=== PATIENT | male | born 1935 | race Caucasian/White ===

== ENCOUNTER 2019-05-01 11:07 | Outpatient (CLI) | payer BC, MEDICARE ==
--- NOTE | 2019-05-01 13:46 | PET ---
Nuclear medicine FDG PET/CT: (Positron emission tomography and computed tomography) DATE: 05/01/2019 HISTORY: 84-year-old male with large B-cell lymphoma of right tonsil. Initial staging. COMPARISON: None available TECHNIQUE: IV injection of F-18 fluorodeoxyglucose (FDG) dose: 10.8 mCi. PET scan and attenuation correction CT performed from skull base to proximal thighs. PET scan and attenuation correction CT thinner slices performed through head and neck. FINDINGS: SUV (standard uptake values) numbers given are maximum SUVs. QCLR used. At the distal tip of the oral tongue, there is a focus of intensely increased FDG uptake with SUV of 7.9. This could be either due to tongue muscular contraction activity, or a primary neoplasm. Recommend direct physical examination of the tip of the tongue. There is a large soft tissue density mass centered in the region of the right palatine tonsil, with l obular margins and protruding into the oral pharyngeal airway reaching midline. SUV 11.1. Nearby, there are multiple malignant right cervical lymph nodes: Right lateral retropharyngeal versus level 2 lymph node SUV 7.1. Large conglomeration of matted right level 2 and level 3 lymph nodes with SUV 11.2. Conglomeration of right level 3 and level 4 lymph nodes with SUV 10.6. 1 x 1.5 cm right level 5A lymph node SUV 4.2. No contralateral left-sided cervical lymphadenopathy. Large number of bilateral renal parenchymal cysts, including large cysts and hemorrhagic cysts. The l argest is a 6.5 x 6 cm exophytic round renal mass protruding inferiorly from the lower pole of the right renal cortex, with density of 18 Hounsfield units, surrounded by edema. The edema surrounding t his exophytic cystic mass has SUV up to 5.9. Otherwise no convincing evidence of metastatic disease within the chest, abdomen, or pelvis. There is diffusely mildly increased skeletal uptake throughout much of the spine and pelvis, which is nonspecific, in the range of 2 - 2.7 SUV. 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 2) extensive right cervical lymphadenopathy including matted conglomeration of large right lymph node s. 3) focus of intensely increased uptake at the tip of the oral tongue. This could be due to tongue mus jillian contraction activity, traumatic right injury, or primary cancer. Recommend direct physical examination. 4) a large number of bilateral renal cysts, suspicious for polycystic kidney disease type II. 5) the largest 6.5 cm cystic mass exophytic from the lower pole the right kidney is involved with joel rounding edema and increased FDG uptake, suggesting that this may represent an infected renal cyst.
== END 2019-05-01 11:08 | disposition home or self-care (01) ==
LOC: PET 11:07
PROVIDERS: ATTEND Internal Medicine Medical Oncology
DX: C83.31 Diffuse large B-cell lymphoma, lymph nodes of head, face, and neck (principal); R59.0 Localized enlarged lymph nodes; N28.1 Cyst of kidney, acquired
CPT/HCPCS: 78815; A9552

== ENCOUNTER 2019-07-11 07:27 | Day surgery (SDC) | payer BC, MEDICARE ==
[2019-07-11] MEDS ORDERED: Bupivacaine HCl 0.5%/Epinephrine 1:200,000/PF 30 ml Vial ONE (08:29)
[2019-07-11] MEDS ORDERED: Lidocaine 2% PF 5 ML VIAL ONE (08:29)
[2019-07-11] MEDS ORDERED: Fentanyl 100 MCG/2 ML VIAL ONE (08:32)
[2019-07-11] MEDS ORDERED: Midazolam HCl 2 mg/2 ml Vial ONE (08:32)
--- NOTE | 2019-07-11 10:23 | RAD ---
XR Chest 1 View Portable HISTORY: Mediport placement, B-cell lymphoma COMPARISON: None FINDINGS: There is a left subclavian Port-A-Cath with tip in the projection of the SVC. The heart siz e is normal. The lungs are well expanded without focal areas of consolidation, pneumothorax or pleural effusions. IMPRESSION: No radiographic evidence of acute cardiopulmonary process.
--- NOTE | 2019-07-11 16:53 | OP ---
DATE OF PROCEDURE: 07/11/2019 PREOPERATIVE DIAGNOSES: B-cell lymphoma, in need of MediPort access for antineoplastic treatment. POSTOPERATIVE DIAGNOSES: B-cell lymphoma, in need of MediPort access for antineoplastic treatment. PROCEDURE PERFORMED: Placement of left subclavian vein MediPort, low-profile PowerPort, fluoroscopy used. ANESTHESIA: IV sedation, local of 0.5% Marcaine with epinephrine 30 mL mixed with 2% Xylocaine 10 mL. DESCRIPTION OF PROCEDURE: The patient was taken to the operating room, where in supine position, neck and chest were prepared with ChloraPrep and draped in routine fashion. Local anesthetic was infiltrated in the skin and subcutaneous tissue about the operative site. Infraclavicular approach made left access in the subclavian vein, threading the J-wire, removing the trocar catheter, enlarging the skin incision, creating a subcutaneous pocket to accommodate the MediPort. Dilator and Peel-Away sheath were placed over the J-wire into the superior vena cava. Dilator and J-wire were removed. Catheter was placed over the Peel-Away sheath. Peel-Away sheath was removed. Fluoroscopically, catheter tip was placed in optimal position in the superior vena cava, and catheter length was adjusted and connected to the MediPort placed in the subcutaneous pocket secured with 2 interrupted sutures of 3-0 Prolene. Subcutaneous tissue was approximated with 3-0 Monocryl, skin with subdermal 4-0 Monocryl, and [place] glue applied. MediPort was accessed with a Alvarez needle and IV tubing to lead access for chemotherapy administration today. A good return of venous blood obtained. It was flushed with heparinized saline solution. Sterile dressings were applied. Fluoroscopic images revealed good line and port placement. Job ID: [id number]
== END 2019-07-11 11:06 | disposition home or self-care (01) ==
LOC: SDC 07:27
PROVIDERS: ATTEND Specialist
PROC: 05H633Z Insertion of Infusion Device into Left Subclavian Vein, Percutaneous Approach (ICD-10-PCS; principal; 2019-07-11)
DX: C85.10 Unspecified B-cell lymphoma, unspecified site (principal)
CPT/HCPCS: 71045; C1788; J0670; J0690; J1642; J2001; J2250; J3010

== ENCOUNTER 2019-09-24 10:33 | Outpatient (CLI) | payer BC, MEDICARE ==
--- NOTE | 2019-09-24 12:56 | NM ---
Exam: Nuclear medicine MUGA scan HISTORY: Unspecified B-cell lymphoma. Patient is undergoing chemotherapy administration. COMPARISON: 06/30/2019 TECHNIQUE: Patient was administered 27.7 mCi of technetium 99m tagged red blood cells intravenously. Gated imaging was performed in the [place] projection FINDINGS: There is decreased contractility of the ventricle. Left ventricular calculated ejection fraction is 5 0.4% IMPRESSION: 1. Decreased contractility of the left ventricle. 2. Decreased ejection fraction. Currently, the calculated left ejection fraction is 50.4%. Previously , 75.6%
[2019-09-24] MEDS ORDERED: Heparin 1,000 UNITS/ML VIAL ONE (13:35)
== END 2019-09-24 10:34 | disposition home or self-care (01) ==
LOC: NM 10:33
PROVIDERS: ATTEND Internal Medicine Medical Oncology
DX: C85.10 Unspecified B-cell lymphoma, unspecified site (principal); C61 Malignant neoplasm of prostate; D51.3 Other dietary vitamin B12 deficiency anemia
CPT/HCPCS: 78472; A9604; J1644

== ENCOUNTER 2019-09-29 13:11 | Outpatient (CLI) | payer BC, MEDICARE ==
--- NOTE | 2019-09-29 10:56 | PET ---
Radionucleotide PET scan with CT attenuation correction HISTORY: Right tonsillar lymphoma with yves metastases. Restaging. COMPARISON: 05/01/2019. FINDINGS: Physiologic uptake within the enteric system and along each urinary tract. Faint vascular u ptake around the shoulders and back. Focally increased uptake at the right tonsil now with maximum SUV 8.9 (previously 12.6). Right level 2 and level 3 cervical lymph nodes are smaller than on the previous study, now with maximum SUV 6.6 (previously 12.5). At the upper anterior midline now, a focus of increased radiotracer uptake shows a maximum SUV of 9.3 (previously 9.1). While less well delineated on the current exam, it was favored to be associated with the tip of the tongue on the previous study. The tongue is likely progressed forward and upward on today's exam, so that it immediately abuts the hard palate. Immediately deep to the left sternocleidomastoid muscle is a somewhat linear focus of increased radio tracer uptake maximum SUV 4.5. There was no abnormality in this location on the previous study. A slightly enlarged, elongated lymph node is favored to account for the activity, although it is diffic ult to characterize anatomically with the noncontrast enhanced exam. The uptake previously seen at the periphery of the exophytic cyst at the inferior pole right kidney i s no longer present. No distant hypermetabolic adenopathy is evident. IMPRESSION: Mixed findings. There has been significant improvement in the hypermetabolic activity associated with the right tonsillar mass and right cervical adenopathy. The Douville score remains 4. There is persistent uptake associated with the tip of the tongue. Concerning for malignancy. A newly hypermetabolic lymph node along the left side of the neck, immediately deep to the lower sternocleidomastoid muscle, is worrisome for new malignant involvement. Please consider direct clinic al evaluation of the tip of the tongue and dedicated CT neck with IV contrast for better anatomic characterization of these lesions.
== END 2019-09-29 13:12 | disposition home or self-care (01) ==
LOC: PET 13:11
PROVIDERS: ATTEND Internal Medicine Medical Oncology
DX: C85.10 Unspecified B-cell lymphoma, unspecified site (principal); J35.8 Other chronic diseases of tonsils and adenoids
CPT/HCPCS: 78815; A9552

== ENCOUNTER 2019-10-17 07:49 | Day surgery (SDC) | payer BC, MEDICARE ==
[2019-10-17] MEDS ORDERED: Sodium Chloride 0.9% 20 ML ONE (09:10)
[2019-10-17] MEDS ORDERED: Dexamethasone 10 MG/ML VIAL ONE (09:10)
[2019-10-17] MEDS ORDERED: Acetaminophen 500 MG TAB PO SCH (09:30)
[2019-10-17] MEDS ORDERED: Dexamethasone 4 mg/ml Vial SLOW IVP SCH (09:30)
[2019-10-17 15:09] VITALS: BP 139/65; TEMP 97.6
== END 2019-10-17 15:23 | disposition home or self-care (01) ==
LOC: ONC/OP 07:49
PROVIDERS: ATTEND Internal Medicine Medical Oncology
PROC: 30233R1 Transfusion of Nonautologous Platelets into Peripheral Vein, Percutaneous Approach (ICD-10-PCS; principal; 2019-10-17)
PROC: 30233N1 Transfusion of Nonautologous Red Blood Cells into Peripheral Vein, Percutaneous Approach (ICD-10-PCS; principal; 2019-10-17)
DX: D64.9 Anemia, unspecified (principal); D69.6 Thrombocytopenia, unspecified
CPT/HCPCS: 36430; 86850; 86900; 86901; 96374; J1100; J1642; P9016

== ENCOUNTER 2019-10-19 21:14 | Inpatient (IN) | payer BC, MEDICARE ==
[2019-10-19] MEDS ORDERED: Lidocaine 2% PF 5 ML VIAL ONE (21:55)
--- NOTE | 2019-10-19 22:03 | RAD ---
Chest AP view INDICATION: Sepsis COMPARISON: Chest radiograph dated July 11, 2019 FINDINGS: Lungs:There is persistent elevation left hemidiaphragm. There is a new small left pleural effusion. T here is increasing airspace opacity in the left lower lobe. Visualized aspects of the right lung are clear. Nipple shadow overlies the right lower hemithorax. Cardiac silhouette:The cardiomediastinal silhouette appears within normal limits. Pulmonary vasculature:Normal Pleural spaces:No pleural effusion or pneumothorax is demonstrated. Upper abdomen:No abnormality seen. Osseous structures: No acute osseous abnormality. Bilateral suture anchors are seen within the alejandra l heads consistent with bilateral rotator cuff repairs. Additional findings:Left chest wall port is unchanged. IMPRESSION: New airspace opacity in the left lower lobe with small left pleural effusion. Recommend c orrelation for left lower lobe pneumonia. Radiographic follow-up to resolution is recommended.
[2019-10-19] MEDS ORDERED: Cefepime 2 GM VIAL ONE (22:08)
[2019-10-19 22:25] LABS: Hemoglobin 10.6 g/dL (14.0-18.0); Mean Corpuscular HGB CONC 34.4 g/dL (32.0-36.0); Mean Corpuscular Hemoglobin 32.4 pg (27.0-31.0); Mean Corpuscular Volume 94.4 fL (78.0-98.0); RBC Distribution Width 14.1 % (11.5-14.5); Red Blood Cell (RBC) Count 3.28 mill/uL (4.70-6.10); White Blood Cell (WBC) Count 4.8 thou/uL (4.8-10.8)
[2019-10-19 22:27] LABS: Mean Platelet Volume 9.5 fL (7.4-10.4); Platelet Count 69 thou/uL (130-400)
[2019-10-19 22:28] LABS: Band 3 % (5-11); Hypochromia SLIGHT = 6-15 cells (100X) (0-5/hpf); Lymphocytes 4 % (21-51); MDiff Complete? YES; Monocytes 7 % (0-10); Neutrophil 86 % (42-75); Platelet Morphology Comment Appears Decreased
[2019-10-19 22:34] LABS: ALT (SGPT) 18 U/L (8-55); AST (SGOT) 15 U/L (5-34); Albumin 3.2 g/dL (3.4-4.8); Alkaline Phosphatase 74 U/L (40-110); Anion Gap 13 mmol/L (10-20); BUN (Urea Nitrogen) 27 mg/dL (8.4-25.7); Bilirubin, Total 0.5 mg/dL (0.2-1.2); Calc. Creatinine Clearance 0 mL/min (70-130); Calcium 8.8 mg/dL (7.8-10.44); Carbon Dioxide 24 mmol/L (23-31); Chloride 106 mmol/L (98-107); Estimated GFR-MDRD 57; Globulin 2.1 g/dL (2.4-3.5); Glucose 103 mg/dL (83-110); Magnesium 1.2 mg/dL (1.6-2.6); Potassium 3.6 mmol/L (3.5-5.1); Protein, Total 5.3 g/dL (5.8-8.1); Sodium 139 mmol/L (136-145)
[2019-10-19 22:54] LABS: CKMB 1.4 ng/mL (0-6.6)
[2019-10-19] MEDS ORDERED: HYDROcodone/Acetaminophen 5/325 mg Tablet PO PRN (23:18)
[2019-10-19] MEDS ORDERED: Zolpidem Tartrate 5 MG TAB PO PRN (23:18)
[2019-10-19] MEDS ORDERED: Bisacodyl 5 MG TAB PO PRN (23:18)
[2019-10-19] MEDS ORDERED: Guaifenesin DM 100-10/5 ML UDCUP PO PRN (23:18)
[2019-10-19] MEDS ORDERED: Ondansetron PF 4 MG/2 ML Vial IVP PRN (23:18)
[2019-10-19] MEDS ORDERED: Magnesium 2 GM/50 ML BAG (IN WATER) ONE (23:58)
[2019-10-20 00:57] LABS: Troponin I 0.084 ng/mL (< 0.028)
[2019-10-20] MEDS ORDERED: cefTRIAXone\\ROCEPHIN 2 GM VIAL ONE (03:50)
[2019-10-20 04:00] LABS: Anion Gap 12 mmol/L (10-20); BUN (Urea Nitrogen) 22 mg/dL (8.4-25.7); Calc. Creatinine Clearance 0 mL/min (70-130); Calcium 8.1 mg/dL (7.8-10.44); Carbon Dioxide 22 mmol/L (23-31); Chloride 109 mmol/L (98-107); Estimated GFR-MDRD 67; Glucose 119 mg/dL (83-110); Magnesium 1.5 mg/dL (1.6-2.6); Potassium 3.7 mmol/L (3.5-5.1); Sodium 139 mmol/L (136-145)
[2019-10-20 04:10] LABS: Troponin I 0.073 ng/mL (< 0.028)
[2019-10-20] MEDS: cefTRIAXone\\ROCEPHIN 2 GM in Sodium Chloride 0.9% 100 ML IVPB SCH (04:10)
[2019-10-20 04:46] LABS: Band 6 % (5-11); Hemoglobin 10.2 g/dL (14.0-18.0); Hypochromia SLIGHT = 6-15 cells (100X) (0-5/hpf); Lymphocytes 3 % (21-51); MDiff Complete? YES; Mean Corpuscular HGB CONC 33.8 g/dL (32.0-36.0); Mean Corpuscular Hemoglobin 32.5 pg (27.0-31.0); Mean Corpuscular Volume 96.2 fL (78.0-98.0); Mean Platelet Volume 9.4 fL (7.4-10.4); Monocytes 3 % (0-10); Neutrophil 88 % (42-75); Platelet Count 72 thou/uL (130-400); Platelet Morphology Comment Appears Decreased; RBC Distribution Width 14.2 % (11.5-14.5); Red Blood Cell (RBC) Count 3.14 mill/uL (4.70-6.10); White Blood Cell (WBC) Count 4.3 thou/uL (4.8-10.8)
--- NOTE | 2019-10-20 07:53 | HP ---
PRESENTING COMPLAINT: Increasing weakness. HISTORY OF PRESENT ILLNESS: An 84-year-old male with history of hypertension; B-cell lymphoma, on chemo with Adriamycin and other medication, family unsure of exact regimen, last chemo dose was one week ago, presented because of increasing weakness. He denies any shortness of breath, fever, or chills. He denies any nausea, vomiting, or recent diarrhea or abdominal pain. On arrival in the ED, he was noted with left lower lobe infiltrate as well as hypomagnesemia. Patient denies he has ever been on magnesium in the past. He is adherence with his medication. PAST MEDICAL HISTORY: Significant for hypertension; B-cell lymphoma, on chemotherapy; recent neutropenia with anemia, status post PRBC five days ago. ALLERGIES: NO KNOWN DRUG ALLERGIES. HOME MEDICATIONS: Reviewed. See med list. FAMILY HISTORY: Not significant for this 84-year-old male. REVIEW OF SYSTEMS: All systems reviewed times 14, negative, except for weakness as well as myalgia and generalized body aches. PHYSICAL EXAMINATION: VITAL SIGNS: Current vitals, blood pressure of 148/59, pulse of ,of 93 on room air, and temperature afebrile. GENERAL: Elderly male, lying in bed, not in any acute respiratory distress. HEENT: Head is atraumatic, normocephalic. Pupils equal and reactive to light. NECK: No JVD. No carotid bruit. RESPIRATORY: Good air entry, except mild crepitation in left base. No wheeze. CARDIOVASCULAR: S1, S2. Rate and rhythm regular. GI: Abdomen is full, soft, and nontender. EXTREMITIES: No pedal edema. No calf tenderness. NEUROLOGIC: Patient is alert, conversant. at bedside supplying history. LABORATORY DATA: WBC 4.8 with 86% neutrophils, 3% bands, hemoglobin 10.6, and platelets 69. Sodium 139, BUN 27, creatinine 1.2. Magnesium 1.2. Troponin 0.087. Albumin 3.2. AST and alkaline phosphatase normal. Chest x-ray shows left base infiltrate with small associated pleural effusion. IMPRESSION: 1. Left base pneumonia, likely community acquired. 2. Thrombocytopenia due to recent pancytopenia. 3. Patient is on chemo. 4. Hypertension. PLAN: We will admit the patient to observation. We will manage the patient for the followin. Left base pneumonia, likely etiology of weakness. We will obtain PT and OT. Start empiric antibiotics with Levaquin. We will obtain sputum for culture and sensitivity. We will obtain blood culture x2. DuoNebs as tolerated. We will continue to monitor. We will also do flu swab. 2. Hypertension. Resume home regimen. 3. Hypomagnesemia. We will replete. We will also start magnesium oxide. Risk of diarrhea discussed with patient. Follow repeat magnesium in a.m. 4. DVT prophylaxis. Subcutaneous Lovenox. 5. Advance directives discussed with patient and . They would prefer patient to be full code. Total time spent in review of record, discussion with patient, and evaluation greater than 55 minutes. Job ID: [id number]
[2019-10-20] MEDS ORDERED: Famotidine 20 MG TAB ONE (10:37)
[2019-10-20] MEDS ORDERED: Enoxaparin Sodium 40 MG/0.4 ML SYRINGE ONE (10:37)
[2019-10-20] MEDS ORDERED: Aspirin Chewable 81 MG TAB ONE (10:37)
[2019-10-20] MEDS: Allopurinol 300 MG TAB PO SCH (10:48)
[2019-10-20] MEDS: Aspirin 81 mg Enteric Coated Tablet PO SCH (10:49)
[2019-10-20] MEDS: Carvedilol 6.25 MG TAB PO SCH ×2 (10:50→20:07)
[2019-10-20] MEDS: Famotidine 20 MG TAB PO SCH ×2 (10:51→20:07)
[2019-10-20] MEDS: Finasteride 5 MG TAB PO SCH (10:52)
[2019-10-20] MEDS: Magnesium Oxide 400 MG TAB PO SCH ×2 (10:53→20:07)
[2019-10-20] MEDS: Enoxaparin Sodium 40 MG/0.4 ML SYRINGE SC SCH ×2 (10:53→11:35)
[2019-10-20] MEDS: Levothyroxine Sodium 75 MCG TAB PO SCH (11:36)
[2019-10-20] MEDS ORDERED: Acetaminophen 325 MG TAB ONE (15:12)
[2019-10-20] MEDS: Acetaminophen 325 MG TAB PO PRN (15:13)
[2019-10-20] MEDS: Sodium Chloride 0.9% 1,000 ML IV SCH ×3 (17:03→21:49)
--- NOTE | 2019-10-20 17:11 | PDOC.HOSPP ---
- Subjective Encounter Date: 10/20/19 Encounter Time: 17:08 Subjective: Mr. Sims was seen today in follow-up of pneumonia. He was feeling very weak, and had fever. He denies any chest pain or shortness of breath. - Objective Vital Signs & Weight: Vital Signs (12 hours) Temp Pulse Resp BP Pulse Ox 10/20/19 11:38 98.5 F 89 20 144/75 H 96 Result Diagrams: 10/20/19 03:35 10/20/19 03:35 Hospitalist ROS - Medication Medications: Active Medications Generic Name Dose Route Start Last Admin Trade Name Freq PRN Reason Stop Dose Admin Acetaminophen 650 mg 10/19/19 23:18 10/20/19 15:13 Tylenol PO 650 mg Q4H PRN Administration Headache/Fever/Mild Pain (1-3) Allopurinol 300 mg 10/20/19 09:00 10/20/19 10:48 Zyloprim PO 300 mg DAILY CAROLINE Administration Aspirin 81 mg 10/20/19 09:00 10/20/19 10:49 Ecotrin PO 81 mg DAILY CAROLINE Administration Carvedilol 6.25 mg 10/20/19 09:00 10/20/19 10:50 Coreg PO 6.25 mg BID CAROLINE Administration Diltiazem HCl 240 mg 10/20/19 09:00 10/20/19 10:51 Cardizem Cd PO 240 mg DAILY CAROLINE Administration Enoxaparin Sodium 40 mg 10/20/19 09:00 10/20/19 11:35 Lovenox SC Not Given 0900 CAROLINE Famotidine 20 mg 10/20/19 09:00 10/20/19 10:51 Pepcid PO 20 mg BID CAROLINE Administration Finasteride 5 mg 10/20/19 09:00 10/20/19 10:52 Proscar PO 5 mg DAILY CAROLINE Administration Sodium Chloride 1,000 mls @ 50 mls/hr 10/19/19 23:30 10/20/19 17:03 Normal Saline 0.9% IV Not Given .Q20H CAROLINE Ceftriaxone Sodium 2 gm/ 100 mls @ 200 mls/hr 10/20/19 01:00 10/20/19 04:10 Sodium Chloride IVPB 100 mls Q24HR CAROLINE Administration Levofloxacin 750 mg/ Device 150 mls @ 100 mls/hr 10/19/19 23:59 10/20/19 17: 03 IVPB Not Given Q24HR CAROLINE Levothyroxine Sodium 75 mcg 10/20/19 09:00 10/20/19 11:36 Synthroid PO 75 mcg DAILY CAROLINE Administration Magnesium Oxide 400 mg 10/20/19 09:00 10/20/19 10:53 Magnesium Oxide PO 400 mg BID CAROLINE Administration Pantoprazole Sodium 40 mg 10/20/19 09:00 10/20/19 10:51 Protonix PO 40 mg DAILY CAROLINE Administration - Exam Eye: PERRL Heart: RRR, no murmur, no gallops, no rubs, normal peripheral pulses Respiratory: CTAB, no wheezes, no rales, no ronchi, normal chest expansion, no tachypnea, normal percussion Gastrointestinal: soft, non-tender, non-distended, normal bowel sounds, no palpable masses, no hepatomegaly Extremities: no cyanosis, no clubbing, no edema Hosp A/P (1) Pneumonia Code(s): J18.9 - PNEUMONIA, UNSPECIFIED ORGANISM Status: Acute (2) B-cell lymphoma Code(s): C85.10 - UNSPECIFIED B-CELL LYMPHOMA, UNSPECIFIED SITE Status: Acute (3) Hypertension Code(s): I10 - ESSENTIAL (PRIMARY) HYPERTENSION Status: Chronic (4) Abnormal EKG Code(s): R94.31 - ABNORMAL ELECTROCARDIOGRAM [ECG] [EKG] Status: Acute - Plan * Pneumonia- community acquired- will continue Rocephin and Levaquin * B- Cell Lymphoma- he is currently undergoing chemotherapy- his WBC count is low but his ANC is well above 1K, so can discontinue Neutropenic precautions * HTN- Blood pressure is stable * Abnormal EKG- will request previous EKG and compare, then make a decision regarding further evaluation
[2019-10-20 17:17] VITALS: BMI 25.4
[2019-10-21] MEDS: cefTRIAXone\\ROCEPHIN 2 GM in Sodium Chloride 0.9% 100 ML IVPB SCH (00:45)
[2019-10-21] MEDS: Acetaminophen 325 MG TAB PO PRN (05:46)
[2019-10-21] MEDS: Aspirin 81 mg Enteric Coated Tablet PO SCH (08:14)
[2019-10-21] MEDS: Allopurinol 300 MG TAB PO SCH (08:15)
[2019-10-21] MEDS: Levothyroxine Sodium 75 MCG TAB PO SCH (08:15)
[2019-10-21] MEDS: Carvedilol 6.25 MG TAB PO SCH ×2 (08:15→20:57)
[2019-10-21] MEDS: Magnesium Oxide 400 MG TAB PO SCH ×2 (08:15→20:57)
[2019-10-21] MEDS: Finasteride 5 MG TAB PO SCH (08:15)
[2019-10-21] MEDS: Famotidine 20 MG TAB PO SCH ×2 (08:16→20:57)
[2019-10-21] MEDS: Enoxaparin Sodium 40 MG/0.4 ML SYRINGE SC SCH (08:16)
[2019-10-21 10:52] LABS: Hemoglobin 9.9 g/dL (14.0-18.0); Mean Corpuscular HGB CONC 34.4 g/dL (32.0-36.0); Mean Corpuscular Hemoglobin 32.5 pg (27.0-31.0); Mean Corpuscular Volume 94.3 fL (78.0-98.0); Mean Platelet Volume 8.7 fL (7.4-10.4); Platelet Count 96 thou/uL (130-400); RBC Distribution Width 14.2 % (11.5-14.5); Red Blood Cell (RBC) Count 3.04 mill/uL (4.70-6.10); White Blood Cell (WBC) Count 4.5 thou/uL (4.8-10.8)
[2019-10-21 11:13] LABS: Anion Gap 11 mmol/L (10-20); BUN (Urea Nitrogen) 14 mg/dL (8.4-25.7); Calc. Creatinine Clearance 54 mL/min (70-130); Calcium 7.9 mg/dL (7.8-10.44); Carbon Dioxide 25 mmol/L (23-31); Chloride 107 mmol/L (98-107); Estimated GFR-MDRD 57; Glucose 192 mg/dL (83-110); Sodium 140 mmol/L (136-145)
[2019-10-21 11:16] LABS: Troponin I 0.081 ng/mL (< 0.028)
[2019-10-21] MEDS ORDERED: Potassium Chloride 20 MEQ TAB PO SCH (11:30)
--- NOTE | 2019-10-21 11:41 | PDOC.HOSPP ---
- Subjective Encounter Date: 10/21/19 Encounter Time: 11:36 Subjective: Mr. Sims was seen today in follow-up of generalized weakness. He says he feels a little better today. He walked with PT. - Objective Vital Signs & Weight: Vital Signs (12 hours) Temp Pulse Resp BP Pulse Ox 10/21/19 07:42 98.0 F 90 15 145/69 H 95 10/21/19 03:27 98.7 F 95 20 140/63 96 Weight Weight 182 lb 1 oz Result Diagrams: 10/21/19 10:34 10/21/19 10:34 Hospitalist ROS - Medication Medications: Active Medications Generic Name Dose Route Start Last Admin Trade Name Freq PRN Reason Stop Dose Admin Acetaminophen 650 mg 10/19/19 23:18 10/21/19 05:46 Tylenol PO 650 mg Q4H PRN Administration Headache/Fever/Mild Pain (1-3) Allopurinol 300 mg 10/20/19 09:00 10/21/19 08:15 Zyloprim PO 300 mg DAILY CAROLINE Administration Aspirin 81 mg 10/20/19 09:00 10/21/19 08:14 Ecotrin PO 81 mg DAILY CAROLINE Administration Carvedilol 6.25 mg 10/20/19 09:00 10/21/19 08:15 Coreg PO 6.25 mg BID CAROLINE Administration Diltiazem HCl 240 mg 10/20/19 09:00 10/21/19 08:14 Cardizem Cd PO 240 mg DAILY CAROLINE Administration Enoxaparin Sodium 40 mg 10/20/19 09:00 10/21/19 08:16 Lovenox SC Not Given 899 CAROLINE Famotidine 20 mg 10/20/19 09:00 10/21/19 08:16 Pepcid PO 20 mg BID CAROLINE Administration Finasteride 5 mg 10/20/19 09:00 10/21/19 08:15 Proscar PO 5 mg DAILY CAROLINE Administration Sodium Chloride 1,000 mls @ 50 mls/hr 10/19/19 23:30 10/20/19 21:49 Normal Saline 0.9% IV 1,000 mls .Q20H CAROLINE Administration Ceftriaxone Sodium 2 gm/ 100 mls @ 200 mls/hr 10/20/19 01:00 10/21/19 00:45 Sodium Chloride IVPB 100 mls Q24HR CAROLINE Administration Levofloxacin 750 mg/ Device 150 mls @ 100 mls/hr 10/19/19 23:59 10/21/19 00: 45 IVPB 150 mls Q24HR CAROLINE Administration Levothyroxine Sodium 75 mcg 10/20/19 09:00 10/21/19 08:15 Synthroid PO 75 mcg DAILY CAROLINE Administration Magnesium Oxide 400 mg 10/20/19 09:00 10/21/19 08:15 Magnesium Oxide PO 400 mg BID CAROLINE Administration Pantoprazole Sodium 40 mg 10/20/19 09:00 10/21/19 08:15 Protonix PO 40 mg DAILY CAROLINE Administration - Exam Eye: PERRL Heart: RRR, no murmur, no gallops, no rubs, normal peripheral pulses Respiratory: CTAB, no wheezes, no rales, no ronchi, normal chest expansion Gastrointestinal: soft, non-tender, non-distended, normal bowel sounds, no palpable masses, no hepatomegaly Extremities: 1+ LE edema Hosp A/P (1) Pneumonia Code(s): J18.9 - PNEUMONIA, UNSPECIFIED ORGANISM Status: Acute (2) B-cell lymphoma Code(s): C85.10 - UNSPECIFIED B-CELL LYMPHOMA, UNSPECIFIED SITE Status: Acute (3) Hypertension Code(s): I10 - ESSENTIAL (PRIMARY) HYPERTENSION Status: Chronic (4) Abnormal EKG Code(s): R94.31 - ABNORMAL ELECTROCARDIOGRAM [ECG] [EKG] Status: Acute - Plan * Pneumonia- community acquired- will continue Rocephin and Levaquin * Awaiting the final culture results * B- Cell Lymphoma- he is currently undergoing chemotherapy- * HTN- Blood pressure is stable * Abnormal EKG- awaiting a previous EKG for comparison- he does not have any symptoms of CAD
[2019-10-21 12:02] LABS: Band 15 % (5-11); Lymphocytes 7 % (21-51); MDiff Complete? YES; Metamyelocyte 3 % (0-0); Monocytes 6 % (0-10); Neutrophil 68 % (42-75); Platelet Morphology Comment Appears Decreased; Polychromasia SLIGHT = 2-3 cells (100X) (0-2/hpf); Reactive Lymphocytes 1 % (0-10); Schistocytes SLIGHT = 2-5 cells (100X) (0-1/hpf)
--- NOTE | 2019-10-21 12:35 | PQF ---
DAYA PACHECO TONI MD [id number] [facility]-294 [id number] CLINICAL DOCUMENTATION IMPROVEMENT CLARIFICATION FORM: ICD-10 Updated PLEASE DO AN ADDENDUM TO THE PROGRESS NOTE WITH ANY DOCUMENTATION UPDATES OR ADDITIONS AND CARRY THROUGH TO DC SUMMARY. THANK YOU. DATE: 10/21/19 ATTN: Dr. Segal Please exercise your independent, professional judgment in responding to the clarification form. Clinical indicators are provided on the bottom of this form for your review Please check appropriate box(s): Pancytopenia due to: [ ] Pancytopenia [X ] Pancytopenia due to Chemotherapy/antineoplastic drugs [ ] Other diagnosis [ ] Unable to determine In addition, please specify: Present on Admission (POA): [ X ] Yes [ ] No [ ] Unable to determine For continuity of documentation, please document condition throughout progress notes and discharge summary. Thank You. CLINICAL INDICATORS - SIGNS / SYMPTOMS / LABS/ RESULTS AND LOCATION IN MEDICAL RECORD 10/20 WBC 4.3, RBC 3.14,HGB 10.2, PLT 72 per lab "Generalized weakness; thrombocytopenia due to recent pancytopenia" per H&P ([place]) RISK FACTORS / RESULTS AND LOCATION IN MR Cancer-->10/20 Philipp: "B Cell Lymphoma- he is currently undergoing chemotherapy" TREATMENT / RESULTS AND LOCATION IN MR Daily CBC 10/19 to date per orders NS at 50 10/19 to date per orders (This form is maintained as a part of the permanent medical record) 2014 [employer]. All Rights Reserved Kim Anne RN, BSN, CCDS [email or web address]
[2019-10-21] MEDS ORDERED: Ramipril 5 MG CAP PO SCH (20:00)
[2019-10-22] MEDS: cefTRIAXone\\ROCEPHIN 2 GM in Sodium Chloride 0.9% 100 ML IVPB SCH (01:43)
[2019-10-22] MEDS: Acetaminophen 325 MG TAB PO PRN (04:26)
[2019-10-22] MEDS ORDERED: Ramipril 5 MG CAP PO SCH (09:00)
[2019-10-22 09:13] LABS: Hemoglobin 9.7 g/dL (14.0-18.0); Mean Corpuscular HGB CONC 34.3 g/dL (32.0-36.0); Mean Corpuscular Hemoglobin 32.4 pg (27.0-31.0); Mean Corpuscular Volume 94.6 fL (78.0-98.0); Mean Platelet Volume 8.9 fL (7.4-10.4); Platelet Count 115 thou/uL (130-400); RBC Distribution Width 14.4 % (11.5-14.5); Red Blood Cell (RBC) Count 2.99 mill/uL (4.70-6.10); White Blood Cell (WBC) Count 4.6 thou/uL (4.8-10.8)
[2019-10-22 09:35] LABS: Anion Gap 10 mmol/L (10-20); BUN (Urea Nitrogen) 15 mg/dL (8.4-25.7); Calc. Creatinine Clearance 55 mL/min (70-130); Calcium 8.1 mg/dL (7.8-10.44); Carbon Dioxide 27 mmol/L (23-31); Chloride 105 mmol/L (98-107); Estimated GFR-MDRD 59; Glucose 115 mg/dL (83-110); Potassium 3.7 mmol/L (3.5-5.1); Sodium 138 mmol/L (136-145)
[2019-10-22] MEDS: Famotidine 20 MG TAB PO SCH (09:54)
[2019-10-22] MEDS: Aspirin 81 mg Enteric Coated Tablet PO SCH (09:54)
[2019-10-22] MEDS: Carvedilol 6.25 MG TAB PO SCH (09:54)
[2019-10-22] MEDS: Allopurinol 300 MG TAB PO SCH (09:54)
[2019-10-22] MEDS: Magnesium Oxide 400 MG TAB PO SCH (09:55)
[2019-10-22] MEDS: Finasteride 5 MG TAB PO SCH (09:55)
[2019-10-22] MEDS: Levothyroxine Sodium 75 MCG TAB PO SCH (09:55)
[2019-10-22 10:03] LABS: Band 27 % (5-11); Lymphocytes 13 % (21-51); MDiff Complete? YES; Monocytes 7 % (0-10); Myelocyte 1 % (0-0); Neutrophil 51 % (42-75); Platelet Morphology Comment Appears Decreased; Polychromasia SLIGHT = 2-3 cells (100X) (0-2/hpf); Reactive Lymphocytes 1 % (0-10)
[2019-10-22] MEDS: Enoxaparin Sodium 40 MG/0.4 ML SYRINGE SC SCH (10:50)
[2019-10-22] MEDS ORDERED: Enoxaparin Sodium 30 MG/0.3 ML SYRINGE SC SCH (11:15)
[2019-10-22] MEDS: Sodium Chloride 0.9% 1,000 ML IV SCH (11:32)
--- NOTE | 2019-10-22 11:37 | PDOC.HOSPP ---
- Subjective Encounter Date: 10/22/19 Encounter Time: 11:34 Subjective: Mr. Sims was seen today in follow-up of generalized weakness. He does not have any complaints. - Objective Vital Signs & Weight: Vital Signs (12 hours) Temp Pulse Pulse Resp BP BP Pulse Ox 10/22/19 11:25 98 F 99 18 136/73 99 10/22/19 10:47 106 H 156/70 H 10/22/19 09:54 96 10/22/19 07:48 97.9 F 96 18 139/72 97 10/22/19 03:35 98.5 F 100 20 139/66 95 Weight Admit Weight 182 lb 1 oz Weight 179 lb 1.6 oz I&O: 10/21/19 10/22/19 10/23/19 06:59 06:59 06:59 Intake Total 2851 Output Total 1550 Balance 1301 Result Diagrams: 10/22/19 08:40 10/22/19 08:40 Hospitalist ROS - Medication Medications: Active Medications Generic Name Dose Route Start Last Admin Trade Name Freq PRN Reason Stop Dose Admin Acetaminophen 650 mg 10/19/19 23:18 10/22/19 04:26 Tylenol PO 650 mg Q4H PRN Administration Headache/Fever/Mild Pain (1-3) Allopurinol 300 mg 10/20/19 09:00 10/22/19 09:54 Zyloprim PO 300 mg DAILY CAROLINE Administration Aspirin 81 mg 10/20/19 09:00 10/22/19 09:54 Ecotrin PO 81 mg DAILY CAROLINE Administration Carvedilol 6.25 mg 10/20/19 09:00 10/22/19 09:54 Coreg PO 6.25 mg BID CAROLINE Administration Diltiazem HCl 240 mg 10/20/19 09:00 10/22/19 09:54 Cardizem Cd PO 240 mg DAILY CAROLINE Administration Famotidine 20 mg 10/20/19 09:00 10/22/19 09:54 Pepcid PO 20 mg BID CAROLINE Administration Finasteride 5 mg 10/20/19 09:00 10/22/19 09:55 Proscar PO 5 mg DAILY CAROLINE Administration Sodium Chloride 1,000 mls @ 50 mls/hr 10/19/19 23:30 10/22/19 11:32 Normal Saline 0.9% IV Not Given .Q20H CAROLINE Ceftriaxone Sodium 2 gm/ 100 mls @ 200 mls/hr 10/20/19 01:00 10/22/19 01:43 Sodium Chloride IVPB 100 mls Q24HR CAROLINE Administration Levofloxacin 750 mg/ Device 150 mls @ 100 mls/hr 10/19/19 23:59 10/22/19 00: 14 IVPB 150 mls Q24HR CAROLINE Administration Levothyroxine Sodium 75 mcg 10/20/19 09:00 10/22/19 09:55 Synthroid PO 75 mcg DAILY CAROLINE Administration Magnesium Oxide 400 mg 10/20/19 09:00 10/22/19 09:55 Magnesium Oxide PO 400 mg BID CAROLINE Administration Pantoprazole Sodium 40 mg 10/20/19 09:00 10/22/19 09:54 Protonix PO 40 mg DAILY CAROLINE Administration Ramipril 10 mg 10/22/19 09:00 10/22/19 09:55 Altace PO 10 mg DAILY CAROLINE Administration Zolpidem Tartrate 5 mg 10/19/19 23:18 10/21/19 20:57 Ambien PO 5 mg HSPRN PRN Administration Insomnia - Exam Eye: PERRL, anicteric sclera Heart: RRR, no murmur, no gallops, no rubs, normal peripheral pulses Respiratory: CTAB, no wheezes, no rales, no ronchi, normal chest expansion, no tachypnea, normal percussion Gastrointestinal: soft, non-tender, non-distended, normal bowel sounds, no palpable masses, no hepatomegaly Extremities: no cyanosis Hosp A/P (1) Pneumonia Code(s): J18.9 - PNEUMONIA, UNSPECIFIED ORGANISM Status: Acute (2) B-cell lymphoma Code(s): C85.10 - UNSPECIFIED B-CELL LYMPHOMA, UNSPECIFIED SITE Status: Acute (3) Hypertension Code(s): I10 - ESSENTIAL (PRIMARY) HYPERTENSION Status: Chronic (4) Abnormal EKG Code(s): R94.31 - ABNORMAL ELECTROCARDIOGRAM [ECG] [EKG] Status: Acute - Plan * Pneumonia- community acquired- stable * Cultures are negative * B- Cell Lymphoma- he is currently undergoing chemotherapy- * HTN- Blood pressure is stable * Abnormal EKG- previous EKG was reviewed and there is no significant change * Stable for discharge home
[2019-10-22 14:24] VITALS: BP 156/72; TEMP 97.9
--- NOTE | 2019-10-23 06:24 | DIS ---
DATE OF ADMISSION: 10/19/2019 DATE OF DISCHARGE: 10/22/2019 DISCHARGE DISPOSITION: Home. DISCHARGE DIAGNOSES: 1. Community-acquired pneumonia. 2. B-cell lymphoma, on chemotherapy with Adriamycin. 3. Pancytopenia secondary to chemotherapy. 4. Hypertension. DISCHARGE MEDICATIONS: Include; 1. Omnicef 300 mg p.o. twice daily. 2. Florastor 250 mg daily. 3. Tramadol 50 mg twice a day as needed. 4. Detrol LA 4 mg at bedtime. 5. Ramipril 10 mg p.o. daily. 6. Pravastatin 10 mg p.o. at bedtime. 7. Omeprazole 20 mg p.o. daily. 8. Multivitamin once a day. 9. Synthroid 75 mcg p.o. daily. 10. Proscar 5 mg p.o. daily. 11. Cardizem CD 240 mg p.o. daily. 12. Carvedilol 6.25 mg twice a day. 13. Aspirin 81 mg daily. 14. Allopurinol 300 mg daily. 15. Tylenol as needed. CODE STATUS: Full code. ALLERGIES: NO KNOWN DRUG ALLERGIES. HOSPITAL COURSE: Mr. Sims is a pleasant 84-year-old gentleman, who was admitted to the hospital after having extreme weakness as well as fever. This was following his latest chemotherapy round. He typically has difficulty with weakness after chemotherapy, but this time he had a fever, which was concerning for his . For this reason, she brought him to the hospital. He was admitted and he had a chest x-ray done, which was suspicious for possible left lower lobe infiltrate. For this reason, antibiotics were started. Blood cultures were done, which were negative and the following day, the patient was actually feeling much improved. For this reason, he was able to be discharged. We did keep him in the hospital 1 additional day to make sure that he remained afebrile and to evaluate him with physical therapy. He was able to be discharged home per the physical therapist and he will need to have close outpatient followup with his primary care physician in approximately 1 week and he was sent home on Omnicef. Job ID: [id number]
[2019-10-23] MEDS ORDERED: Enoxaparin Sodium 30 MG/0.3 ML SYRINGE SC SCH (09:00)
--- NOTE | 2019-10-28 09:34 | PQF ---
[employer] Account Liaison Crystal Reports Winform ViewerHELDERMARYDAYAIP MACK SEGAL MD [id number] [facility]294 [id number] CLINICAL DOCUMENTATION CLARIFICATION FORM: POST DISCHARGE Addendum to original discharge summary date: ____ Late entry note date: __ DATE:10/28/2019 ATTN:MACK SEGAL MD Please exercise your independent, professional judgment in responding to the clarification form. Clinical indicators are provided on the bottom of this form for your review Please check appropriate box(s) to clarify if the following diagnosis has been ruled in or ruled out:Sepsis [ X] Ruled in diagnosis [ X ] Continue to treat [ ] Resolved [ ] Ruled out diagnosis [ ] Cannot rule out diagnosis [ ] Other diagnosis [ ] Unable to determine For continuity of documentation, please document condition throughout progress notes and discharge summary. Thank You. CLINICAL INDICATORS - SIGNS / SYMPTOMS / LABS Pulse-104,Resp-31,Temp-101.8-Documented in ED on 10/19 by Dae Conner Fever, Weakness-Documented in ED on 10/19 by Dae Conner LLL PNA-Documented in ED on 10/19 by Dae Conner Sepsis-Documented in ED on 10/19 by Dae Conner Sepsis in a recently neutropenic but now not neutropenic pt w/o shock likely due to LLL PNA.Much improved after IV fluids as well as broad spectrum ABX.Documented in ED on 10/19 by Dea Conner WBC-4.3-Documented in Laboratory Blood cultures were done, which were negative-Documented in Discharge summary on 10/22 by Mack Segal RISK FACTORS LLL PNA-Documented in ED on 10/19 by Dae Conner TREATMENTS Rocephin 2 gm IV on 10/19 and 10/22-Documented in Medication snapshot [employer] Account Liaison [employer] Reports Winform Viewer (This form is maintained as a part of the permanent medical record) 2014 [employer], [place]. All Rights Reserved [email or web address] [not provided] MTDD
== END 2019-10-22 14:50 | disposition home or self-care (01) | DRG 871 ==
LOC: ERS 21:14 → ERHOLD 23:16 → 2NO 10-20 16:32
PROVIDERS: ADMIT Internal Medicine; ATTEND Internal Medicine
DX: A41.9 Sepsis, unspecified organism (principal); J18.9 Pneumonia, unspecified organism; D61.810 Antineoplastic chemotherapy induced pancytopenia; C85.10 Unspecified B-cell lymphoma, unspecified site; I10 Essential (primary) hypertension; R94.31 Abnormal electrocardiogram [ECG] [EKG]; E83.42 Hypomagnesemia
CPT/HCPCS: 36415; 36430; 71045; 80048; 80053; 82248; 82553; 83605; 83615; 83735; 84100; 84484; 84550; 85025; 86850; 86900; 86901; 87040; 87804; 93005; 96361; 96365; 96366; 96367; 96374; J0692; J0696; J1100; J1642; J1650; J1956; J2001; J3370; J3475; J3490; P9016

== ENCOUNTER 2019-11-10 11:15 | Emergency (ER) | payer BC, MEDICARE ==
[2019-11-10 12:19] LABS: #Eosinphils 0.3 thou/uL (0.0-0.7); #Neutrophils 8.5 thou/uL (1.40-6.50); %Basophils 0.1 % (0.0-1.0); %Eosinophils 2.3 % (0.0-10.0); %Monocytes 9.3 % (0.0-10.0); %Neutrophils 79.3 % (42.0-75.0); Mean Corpuscular HGB CONC 34.2 g/dL (32.0-36.0); Mean Corpuscular Hemoglobin 32.7 pg (27.0-31.0); Mean Corpuscular Volume 95.6 fL (78.0-98.0); Mean Platelet Volume 9.2 fL (7.4-10.4); Platelet Count 116 thou/uL (130-400); Red Blood Cell (RBC) Count 3.67 mill/uL (4.70-6.10); White Blood Cell (WBC) Count 10.7 thou/uL (4.8-10.8)
[2019-11-10 12:31] LABS: ALT (SGPT) 16 U/L (8-55); AST (SGOT) 27 U/L (5-34); Albumin 2.9 g/dL (3.4-4.8); Alkaline Phosphatase 98 U/L (40-110); Anion Gap 13 mmol/L (10-20); BUN (Urea Nitrogen) 30 mg/dL (8.4-25.7); Bilirubin, Total 0.5 mg/dL (0.2-1.2); Calc. Creatinine Clearance 0 mL/min (70-130); Calcium 9.7 mg/dL (7.8-10.44); Carbon Dioxide 25 mmol/L (23-31); Chloride 104 mmol/L (98-107); Estimated GFR-MDRD 62; Globulin 2.6 g/dL (2.4-3.5); Glucose 127 mg/dL (83-110); Potassium 3.8 mmol/L (3.5-5.1); Protein, Total 5.5 g/dL (5.8-8.1); Sodium 138 mmol/L (136-145)
[2019-11-10] MEDS ORDERED: Fentanyl 100 MCG/2 ML VIAL ONE (12:50)
--- NOTE | 2019-11-10 14:29 | CT ---
CTA PULMONARY ANGIOGRAM WITH IV CONTRAST AND 3D POSTPROCESSING: Date: 11/10/2019 HISTORY: Elevated D-Dimer. History of lymphoma. FINDINGS: There is good contrast opacification of the pulmonary arterial vasculature to suggest pulmonary embol ism. There are vascular calcifications without evidence of aneurysmal dilatation of the thoracic aort a. No pleural or pericardial effusions are identified. There are patchy ground-glass infiltrates in t he lungs bilaterally, right greater than left. Degenerative changes are present in the spine. IMPRESSION: No CT evidence of pulmonary embolism. POS: [facility]
--- NOTE | 2019-11-10 15:09 | RAD ---
PORTABLE CHEST 1 VIEW: Date: 11/10/2019 HISTORY: Chest pain. Shortness of breath. Terminal lymphoma. COMPARISON: 10/19/2019. FINDINGS/IMPRESSION: Left-sided Port-A-Cath remains in place. The heart size is normal. There are ground-glass opacities i n the left lung base. No pneumothoraces or large effusions are seen. Postop changes of bilateral rota tor cuff surgery. POS: [facility]
[2019-11-10] MEDS ORDERED: Iopamidol-370 76% 500 ML 1 ML ONE (15:55)
[2019-11-10 16:29] LABS: Bacteria/HPF None Seen HPF (None Seen); Bilirubin Negative (Negative); Blood, Urine Negative (Negative); Clarity Clear (Clear); Glucose, Urine (Dipstick) Normal (Negative); Leukocyte Negative Leu/uL (Negative); Nitrite Negative (Negative); Protein, Urine (Dipstick) 50 mg/dL (Neg-Trace); Squamous Epithelial 0-3 HPF (0-3); Urobilinogen Normal mg/dL (Less than 2); WBC/HPF 0-3 HPF (0-3)
[2019-11-10 16:40] LABS: RBC/HPF 0-3 HPF (0-3)
[2019-11-10 16:41] LABS: Yeast-Budding Rare HPF (None Seen)
== END 2019-11-10 21:04 | disposition hospice, inpatient (51) ==
LOC: ERS 11:15
DX: R62.7 Adult failure to thrive (principal); R53.1 Weakness; E03.9 Hypothyroidism, unspecified; I10 Essential (primary) hypertension; M10.9 Gout, unspecified; Z79.899 Other long term (current) drug therapy; Z79.891 Long term (current) use of opiate analgesic
CPT/HCPCS: 36415; 71045; 71275; 80053; 81003; 81015; 85025; 85379; 93005; 96361; 96374; J3010; Q9967